=== PATIENT | female | born 1980 | race Caucasian/White ===

== ENCOUNTER → 2017-04-09 | Outpatient (CLI) | payer OTHER | LOC: KOH-I 10:22 | DX: M25.532 Pain in left wrist (principal); M25.531 Pain in right wrist | CPT/HCPCS: 73130 ==

== ENCOUNTER 2021-08-13 15:13 | Emergency (ER) | payer OTHER ==
[~2021-08-13] VITALS: Ht 170.2 cm; Wt 71.7 kg
[2021-08-13 15:47] LABS: HEMOGLOBIN 13.9 gm/dl (12.3-15.3); RED BLOOD COUNT 4.31 M/UL (4.00-5.10); WHITE BLOOD COUNT 2.3 K/UL (4.5-11.0)
[2021-08-13 16:10] LABS: BUN/CREATININE RATIO 13 (0-10)
[2021-08-13] MEDS ORDERED: TESSALON PERLE100 MG PO (16:59)
== END 2021-08-13 17:09 | disposition home or self-care (01) ==
LOC: ER1 15:13
PROVIDERS: Emergency Medicine
DX: U07.1 COVID-19 (principal); E87.6 Hypokalemia
CPT/HCPCS: 71045; 80053; 82550; 82553; 83605; 83874; 84484; 85025; 87040; 93005; 99285